=== PATIENT | female | born 1995 | race African-American/Black ===

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

== ENCOUNTER 2017-01-27 22:41 | Emergency (ER) | payer MEDICAID, OTHER ==
[~2017-01-27] VITALS: Ht 167.6 cm; Wt 56.0 kg
[~2017-01-27 22:41] MED LIST changes: -AZIT250T3 PO; +IBUP-232 PO; -NUVAMIS VAGINAL
[2017-01-27 22:44] VITALS: BP 122/77; PULSE 83; RESP 16; TEMP 99; O2SAT 100
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
--- NOTE | 2017-01-27 23:42 | RADRPT ---
EXAM DATE/TIME: 01/27/2017 23:17 [facility] COMPARISON: HAND RIGHT COMPLETE ([id number]), December 28, 2016, 0:09. INDICATIONS : Pain in 5th digit with history of prior fifth digit fracture one month ago. MEDICAL HISTORY : None. SURGICAL HISTORY : None. ENCOUNTER: Initial ACUITY: 1 day PAIN SCORE: 5/10 LOCATION: Right 5th digit FINDINGS: AP, lateral and oblique views of the right hand were obtained and again demonstrate a transverse frac ture through the base of the fifth proximal phalanx. The fracture lines are still evident. There is m ild angulation of the distal fracture fragment which does not appear significant changed. The fractur e lines appear slightly more indistinct with no definite callus formation identified. CONCLUSION: Fracture through the base of the fifth proximal phalanx again noted with mild angulation. The fractur e lines remains evident but are slightly more indistinct consistent with minimal interval healing. No definite callus formation is identified. Fahad Brewster MD on January 27, 2017 at 23:38 Board Certified Radiologist. This report was verified electronically.
[2017-01-27] MEDS ORDERED: IBUP-232 PO (23:49)
[2017-01-28] MEDS ORDERED: IBUPROFEN 600 MG TAB PO ONE
== END 2017-01-28 00:24 | disposition home or self-care (01) ==
LOC: NEPK 22:41
DX: S62.616A Displaced fracture of proximal phalanx of right little finger, initial encounter for closed fracture (principal); X58.XXXA Exposure to other specified factors, initial encounter
CPT/HCPCS: 73130; 99283